=== PATIENT | male | born 1960 | race Caucasian/White ===

== ENCOUNTER 2023-04-23 14:03 | Emergency (ER) | payer MEDICAID, SELFPAY ==
--- NOTE | 2023-04-23 14:11 | XR_ITS ---
PROCEDURE INFORMATION: Exam: XR Left Hand Exam date and time: 04/23/2023 2:06 PM Age: 62 years old Clinical indication: Injury or trauma; Other: Smashed finger; Blunt trauma (contusions or hematomas); Left; Index finger TECHNIQUE: Imaging protocol: Radiologic exam of the left hand. Views: 3 or more views. COMPARISON: No relevant prior studies available. FINDINGS: Limitations: Patient positioning. Bones/joints: Index finger is held in flexion at the proximal interphalangeal joint, and there are adjacent bone fragments of indeterminate donor site. Soft tissues: Index finger soft tissue swelling. IMPRESSION: 1. Index finger is held in flexion at the proximal interphalangeal joint, and there are adjacent bone fragments of indeterminate donor site. 2. Index finger soft tissue swelling.
[2023-04-23 14:20] VITALS: BP 140/78; PULSE 58; RESP 18; TEMP 36.9; O2SAT 97; BMI 22.4
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
--- NOTE | 2023-04-23 15:14 | PC.NURSE ---
placed call to [facility] for hand surgery, awaiting call back.
--- NOTE | 2023-04-23 15:15 | PC.NURSE ---
Patient left index finger place on splint, covered with slightly moist gauze and wrapped with kerlex; Left thumb laceration covered with band-aid. Patient tolerated wound treatment well.
--- NOTE | 2023-04-23 15:37 | PC.NURSE ---
Dr Christina speaking to [facility] hand
[2023-04-23 16:05] VITALS: BP 109/81; PULSE 68; RESP 19; TEMP 36.9; O2SAT 98
== END 2023-04-23 16:06 | disposition short-term general hospital (02) ==
LOC: UTC 14:18 → ER 14:30
PROVIDERS: Emergency Provider Emergency Medicine; PCP Family Medicine
DX: S62.600B Fracture of unspecified phalanx of right index finger, initial encounter for open fracture (principal); S63.250A Unspecified dislocation of right index finger, initial encounter; S61.011A Laceration without foreign body of right thumb without damage to nail, initial encounter; X58.XXXA Exposure to other specified factors, initial encounter
CPT/HCPCS: 26770; 73130; 90715; 96372; 99283